=== PATIENT | male | born 1970 | race Caucasian/White ===

== ENCOUNTER → 2019-04-07 15:40 | Outpatient (BNVA) | payer OTHER, SELFPAY | PROVIDERS: Family Provider Nurse Practitioner; PCP Nurse Practitioner; Referring Provider Nurse Practitioner; Visit Provider Otolaryngology | DX: J31.0 Chronic rhinitis (principal); J32.9 Chronic sinusitis, unspecified | CPT/HCPCS: 96372; 99214; J3301 ==

== ENCOUNTER 2019-04-19 15:42 | Outpatient (CLI) | payer OTHER, SELFPAY ==
--- NOTE | 2019-04-19 16:05 | CT_ITS ---
WS: [id number] CT scan of the sinuses without IV contrast. Additional two-dimensional coronal and sagittal reconstru ction was performed. 04/19/2019 Clinical Data: allergic rhinitis Comparison: None. DLP: 514.[address] scans at [facility] use at least one of these dose optimization techniques: automat ed exposure control; mA and/or kV adjustment per patient size (includes targeted exams where dose is matched to clinical indication); or iterative reconstruction. Findings: The sinus cavities are clear with no air-fluid levels or bone destruction. There is minimal mucosal p eriosteal thickening of the right side of the sphenoid sinus. The orbits are intact. The nasal bones are unremarkable. The intraorbital contents show no abnormalities. CT/CT sinus wo con* [id number] Impression: Minimal mucoperiosteal thickening of right side of sphenoid sinus.
== END 2019-04-19 15:43 | disposition home or self-care (01) ==
LOC: RADWPI 15:46
PROVIDERS: Family Provider Nurse Practitioner; PCP Nurse Practitioner; Visit Provider Otolaryngology
DX: J30.9 Allergic rhinitis, unspecified (principal)
CPT/HCPCS: 70486

== ENCOUNTER → 2019-04-27 15:47 | Outpatient (BNVA) | payer OTHER, SELFPAY | PROVIDERS: Family Provider Nurse Practitioner; PCP Nurse Practitioner; Visit Provider Otolaryngology | DX: J32.9 Chronic sinusitis, unspecified (principal); J31.0 Chronic rhinitis; J34.2 Deviated nasal septum; J34.3 Hypertrophy of nasal turbinates | CPT/HCPCS: 99213; 99214 ==

== ENCOUNTER 2019-05-26 08:23 | Day surgery (SDC) | payer OTHER, SELFPAY ==
[2019-05-25 12:29] VITALS: BMI 32.3
[2019-05-26 08:36] VITALS: BP 145/104; PULSE 74; RESP 18; TEMP 36.5; O2SAT 97
[2019-05-26] MEDS: sodium chloride 0.9% 1,000 ML 30 ML IV (08:46)
--- NOTE | 2019-05-26 08:46 | W.PM.OPSUD ---
Surgery/Procedure H&P Update DATE OF PROCEDURE: May 26, 2019 DATE H&P PERFORMED: 04/27/19 H&P UPDATE INFORMATION: I have reviewed H&P completed within last 30 days, I have examined patient prior to procedure and No changes to prior documentation PREOP DIAGNOSIS: deviated septum PLANNED PROCEDURE: Operation Date: 05/26/19 13:25 Proposed Procedures p Septoturbinoplasty 56264 [id number] J34.2 J34.3(Not Applicable) - Raymundo Chaudhry MD
--- NOTE | 2019-05-26 08:50 | ANES.PREANE2 ---
Pre-Anesthetic Assessment Pre-Anesthetic Assessment: Height/Weight: Height 1.68 m Weight 90.718 kg Temp Pulse Resp BP Pulse Ox 97.7 F 74 18 145/104 97 05/26/19 08:36 05/26/19 08:36 05/26/19 08:36 05/26/19 08:36 05/26/19 08:36 Preop Diagnosis: deviated septum Proposed Procedure: Operation Date: 05/26/19 13:25 Proposed Procedures p Septoturbinoplasty 48999 16588 J34.2 J34.3(Not Applicable) - Raymundo Chaudhry MD Last intake: Intake Last Liquid Date 05/26/19 Last Liquid Time 05:00 Last Solid Date 05/25/19 Last Solid Time 20:00 Exam: Pre-Anes Outpt Exam: alert, oriented x 3, clear to auscultation bilaterally and regular rate & rhythm Airway: Submandibular: WNL Cervical ROM: WNL MP: 2 Dentition: Caps CV/HEM: Comments: 2 Blocks/2FOS without angina/VERAS Neuropsych: Neuropsych: BHARDWAJ Anesthetic Plan: ASA status: 2 Meds/Allergies Current Medications: Current Medications Generic Name Dose Route Start Last Admin Trade Name Freq PRN Reason Stop Dose Admin Sodium Chloride 1,000 mls @ 30 ml s/hr 05/26/19 08:30 05/26/19 08:46 Sodium Chloride 0.9% IV 05/27/19 08:29 30 mls/hr .Q24H ISAMAR Administration PFSH Anesthesia PFSH: Social History Smoking and tobacco status: never smoked Alcohol intake: former Year of sobriety/quit date alcohol: 2 History of recent travel: No Data Anesthesia Cardiac Studies: No Data to Display
[2019-05-26] MEDS: oxymetazoline 0.05% Nasal Spray 15 mL 2 SPRAY NOSTRIL-B (09:26)
[2019-05-26] MEDS: neomycin-poly-bacitracin oint 28 gm 1 APPLIC TOPICAL (09:43)
[2019-05-26 09:52] VITALS: BP 136/88; PULSE 74; RESP 18; TEMP 36.6; O2SAT 94
--- NOTE | 2019-05-26 09:52 | PM.OP ---
Operative Report Date of procedure: May 26, 2019 Pre-op Diagnosis: deviated septum, turbinate hypertrophy Post-op diagnosis: same Post-op Diagnosis: Perforation septum Post-op Findings: Severely deviated septum, hypertrophic turbinates, septal perforation Procedure Done: Nasal septal reconstruction, turbinate reduction. repair septal perforation Pathology: none sent Surgeon: Raymundo Chaudhry Anesthesia: General Condition: stable Disposition: PACU Brief History: 48-year-old male with inability to breathe Procedure: Patient was taken to the operating room and under satisfactory general endotracheal anesthesia the nose was prepped draped and injected. Both right and left nasal turbinates were outfractured and reduced with combination of blunt and piecemeal dissection. Significant improvement was noted. A right hemitransfixion incision anterior left right posterior left posterior and bilateral inferior tunnels were created. A septal perforation was encountered. The quadrangular cartilage was incised anterior to the perpendicular plate of the ethmoid and vomer. The septal deformity was resected. Septal perforation was closed by rotating the septal flap in place. 4-0 chromic was used to close the incisions. Bilateral Casey splints were placed. Patient tolerated the procedure well and was allowed to awaken continue recovery room where he was observed. During the observation time. Care instructions and counseling were given to the patient and his family. Once they verbalized an understanding of all instructions and once he met discharge criteria he was discharged in stable condition.
[2019-05-26 09:55] VITALS: BP 157/88; PULSE 68; RESP 17; O2SAT 95
[2019-05-26 10:00] VITALS: BP 121/95; PULSE 66; PULSE 67; RESP 15; TEMP 37.4; O2SAT 96
[2019-05-26 10:08] VITALS: BP 107/78; PULSE 67; RESP 18; TEMP 37.4; O2SAT 96
[2019-05-26] MEDS: acetaminophen-codeine 300-30mg Tablet 1 TAB PO (10:26)
[2019-05-26] MEDS: ketorolac 30 mg/mL INJ IVP (10:43)
[2019-05-26 10:44] VITALS: BP 140/78; PULSE 67; RESP 18; TEMP 37.4; O2SAT 97
== END 2019-05-26 11:30 | disposition home or self-care (01) ==
PROVIDERS: Family Provider Nurse Practitioner; PCP Nurse Practitioner; Visit Provider Otolaryngology
PROC: (CPT 30520; principal; 2019-05-26 13:25)
DX: J34.2 Deviated nasal septum (principal); J34.3 Hypertrophy of nasal turbinates
CPT/HCPCS: 30520; 30630; 30930; 12345; J0330; J1100; J1885; J2001; J2405; J2704; J2710; J3010; J3490; J7030

== ENCOUNTER → 2019-06-03 08:42 | Outpatient (BNVA) | payer OTHER, SELFPAY | PROVIDERS: Family Provider Nurse Practitioner; PCP Nurse Practitioner; Visit Provider Otolaryngology | DX: Z48.89 Encounter for other specified surgical aftercare (principal) | CPT/HCPCS: 99024 ==

== ENCOUNTER → 2020-10-16 14:04 | Outpatient (BNVA) | payer OTHER, SELFPAY | PROVIDERS: Family Provider Nurse Practitioner; PCP Nurse Practitioner; Referring Provider Nurse Practitioner; Visit Provider Podiatrist Foot & Ankle Surgery | DX: M79.672 Pain in left foot (principal); M79.671 Pain in right foot | CPT/HCPCS: 73630 ==

== ENCOUNTER 2020-12-18 07:14 | Outpatient (CLI) | payer OTHER, SELFPAY ==
--- NOTE | 2020-12-18 07:16 | MR_ITS ---
WS: [id number] MRI LUMBAR SPINE NONCONTRAST HISTORY: LOW BACK PAIN COMPARISON: None available. TECHNIQUE: Sagittal and axial multisequence imaging is submitted. Mild straightening of the normal cervical lordosis. Mild disc desiccation and osteophytes throughout the thoracic spine. Mild LEFT curvature lower lumbar spine. Mild straightening of the normal lumbar lordosis. Disc spaces are well preserved. No fractures or marrow edema. S1 appears partially lumbarized. Conus terminates normally at L1-2 disc level. T10-11: On the sagittal image there is a focal disc protrusion centrally which does not contact the c ord. L1-L2: Normal. L2-L3: Normal. L3-L4: Mild bilateral facet joint arthritis. Ligamentum flavum hypertrophy is asymmetric and greatest on the LEFT. LEFT foraminal disc protrusion without contact on the nerve root. Mild LEFT foraminal n arrowing. L4-L5: Diffuse annular disc bulging with a shallow central disc protrusion. Mild bilateral facet join t arthritis. Mild bilateral ligamentum flavum and facet arthritis. There is very mild foraminal narro wing. L5-S1: Mild annular disc bulging and mild vertebral body osteophytic ridging. Mild ligamentum flavum hypertrophy and facet arthritis. Disc is contacting but not displacing the S1 nerve roots bilaterally , LEFT greater than RIGHT. Very mild LEFT foraminal narrowing. Paravertebral soft tissues are normal. MR/MR lumbar spine wo con* [id number] IMPRESSION: 1. No high-grade central or foraminal stenosis. 2. Shallow LEFT foraminal disc protrusion at L3-4 without contact on the nerve roots and only mild foraminal narrowing. 3. Mild bilateral foraminal narrowing at L4-5. 4. Mild disc bulging and vertebral body osteophytes at L5-S1. Disc contacts bu t does not displace the S1 nerve roots bilaterally, LEFT greater than RIGHT. 5. Mild facet joint arthritis from L3-4 to L5-S1.
== END 2020-12-18 07:15 | disposition home or self-care (01) ==
LOC: RADSHAW 07:15
PROVIDERS: PCP Nurse Practitioner; Visit Provider Nurse Practitioner
DX: M51.26 Other intervertebral disc displacement, lumbar region (principal); M51.27 Other intervertebral disc displacement, lumbosacral region; M25.78 Osteophyte, vertebrae; M47.816 Spondylosis without myelopathy or radiculopathy, lumbar region; M47.817 Spondylosis without myelopathy or radiculopathy, lumbosacral region
CPT/HCPCS: 72148

== ENCOUNTER → 2021-01-31 15:48 | Outpatient (BNVA) | payer OTHER, SELFPAY | PROVIDERS: PCP Nurse Practitioner; Visit Provider Surgery | DX: Z20.822 Contact with and (suspected) exposure to COVID-19 (principal); Z11.52 Encounter for screening for COVID-19 | CPT/HCPCS: 87635 ==

== ENCOUNTER 2021-02-07 07:39 | Day surgery (SDC) | payer OTHER, SELFPAY ==
[2021-02-05 10:48] VITALS: BMI 36.3
--- NOTE | 2021-02-07 07:50 | ANES.PREANE2 ---
Pre-Anesthetic Assessment Pre-Anesthetic Assessment: Height/Weight: Height 1.68 m Weight 102.058 kg Preop Diagnosis: deviated septum, turbinate hypertrophy Proposed Procedure: Operation Date: 02/07/21 09:30 Proposed Procedures p Colonoscopy 49011 Z12.11(Not Applicable) - Baldo Campbell MD Was Beta Mike taken within 24 hours: N/A Was Clonidine taken within 24 hours: N/A Social: Social History: No alcohol and No tobacco Exam: Pre-Anes Outpt Exam: alert, oriented x 3, clear to auscultation bilaterally and regular rate & rhythm Airway: Submandibular: WNL Cervical ROM: WNL MP: 2 Dentition: Full Metabolic: Metabolic: DM, Hyperlipidemia and Morbid obesity Anesthetic Plan: ASA status: 3 Anesthesia: MAC Risk of > 500 ml blood loss (7ml/kg in children): No PFSH Anesthesia PFSH: Medical History Chronic sinusitis Deviated septum Nasal turbinate hypertrophy Family History Mother Cancer Grandmother Cancer Social History Smoking and tobacco status: never smoked Alcohol intake: former Year of sobriety/quit date alcohol: 2 History of recent travel: No Data Anesthesia Cardiac Studies: No Data to Display
[2021-02-07 08:07] VITALS: BP 135/100; PULSE 73; RESP 18; TEMP 36.5; O2SAT 94
[2021-02-07] MEDS: sodium chloride 0.9% 1,000 ML 30 ML IV (08:14)
--- NOTE | 2021-02-07 08:22 | P.HP_ITS ---
Same Day Surgery H&P Indication for Procedure/HPI DATE OF PROCEDURE: February 07, 2021 CHIEF COMPLAINT/INDICATIONFOR SURGICAL PROCEDURE: Change in bowel movement PREOP DIAGNOSIS: Change in bowel habits PLANNED PROCEDRUE: Operation Date: 02/07/21 09:30 Proposed Procedures p Colonoscopy 94119 Z12.11(Not Applicable) - Baldo Campbell MD 12/18/2020 This is a pleasant 50 years old gentleman presents with history of change in bowel movements in the form of constipation alternating with diarrhea has been getting worse. Patient never had a colonoscopy before and denies bleeding per rectum or history of colon cancer. Referred to my practice for consideration for colonoscopy. Patient also reports that he has hernia but he would like to have it fixed later on Interim history 02/07/2021 Patient comes today for diagnostic colonoscopy ROS All systems have been reviewed negative except as per the above or per problem list Medications/Allergies* Home Medications Medication Instructions Recorded Confirmed Type metformin 500 mg tablet 500 mg PO DAILY 01/08/21 02/07/21 History rosuvastatin 10 mg tablet 10 mg PO DAILY 01/08/21 02/07/21 History Allergies/Adverse Reactions 3 Allergy/AdvReac Type Severity Reaction Status Date / Time simvastatin Allergy rash Verified 02/07/21 08:24 Current Medications: Generic Name Dose Route Start Last Admin Trade Name Freq PRN Reason Stop Dose Admin Sodium Chloride 1,000 mls @ 30 mls/hr 02/07/21 08:15 02/07/21 08:14 Sodium Chloride 0.9% IV 30 mls/hr .Q24H ISAMAR Administration Pertinent History/Comorbid Conditions* Medical History (Updated 12/28/20 @ 16:06 by Vitaliy Calvert MD) Chronic sinusitis Deviated septum Nasal turbinate hypertrophy Family History (Updated 04/07/19 @ 16:29 by Danita Cote LPN) Cancer Mother Grandmother Social History Smoking and tobacco status: never smoked Alcohol intake: former Year of sobriety/quit date alcohol: 2 History of recent travel: No Pertinent Exam Findings alert, oriented x 3, regular rate & rhythm and procedure specific exam findings (Abdominal examination nontender nondistended soft) Recommendations Surgery/Procedure today (Colonoscopy with possible biopsy and possible polypectomy) Coding Level of Care Code Acute Manufacturing Maintenance Mechanic for Nani Li
[2021-02-07 09:07] VITALS: BP 135/85; PULSE 106; RESP 16; TEMP 36.2; O2SAT 94
[2021-02-07 09:17] VITALS: BP 114/85; PULSE 84; RESP 18; O2SAT 94
--- NOTE | 2021-02-07 14:57 | ANE.PACU2 ---
Inpatient post-anesthesia follow up: Airway intact: Yes Vital signs: Temperature 97.2 F Pulse Rate 84 Respiratory Rate 18 Blood Pressure 114/85 Pulse Oximetry 94 Oxygen Delivery Me thod Room Air Oxygen Flow Rate Fraction of Inspir ed Oxygen Hydration adequate: Yes Nausea and vomiting: No Pain level: 1 Mental status: Baseline
== END 2021-02-07 09:42 | disposition home or self-care (01) ==
PROVIDERS: PCP Nurse Practitioner; Visit Provider Surgery
PROC: 0DJD8ZZ Inspection of Lower Intestinal Tract, Via Natural or Artificial Opening Endoscopic (ICD-10-PCS; CPT 45378; principal; 2021-02-07 09:30)
DX: R19.4 Change in bowel habit (principal); E11.9 Type 2 diabetes mellitus without complications; E78.5 Hyperlipidemia, unspecified; E66.01 Morbid (severe) obesity due to excess calories; Z68.36 Body mass index [BMI] 36.0-36.9, adult
CPT/HCPCS: 45378; 96360; J2704; J7030

== ENCOUNTER → 2021-09-05 07:57 | Outpatient (BNVA) | payer OTHER, SELFPAY | PROVIDERS: PCP Nurse Practitioner; Visit Provider Podiatrist Foot & Ankle Surgery | DX: S93.402A Sprain of unspecified ligament of left ankle, initial encounter (principal); V29.9XXA Motorcycle rider (driver) (passenger) injured in unspecified traffic accident, initial encounter; M76.72 Peroneal tendinitis, left leg | CPT/HCPCS: 99214 ==

== ENCOUNTER 2021-10-12 06:55 | Outpatient (CLI) | payer OTHER, SELFPAY ==
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
== END 2021-10-12 06:56 | disposition home or self-care (01) ==
LOC: RAD 06:57
PROVIDERS: PCP Nurse Practitioner; Visit Provider Podiatrist Foot & Ankle Surgery
DX: S99.912A Unspecified injury of left ankle, initial encounter (principal); X58.XXXA Exposure to other specified factors, initial encounter
CPT/HCPCS: 73721

== ENCOUNTER → 2021-10-31 10:27 | Outpatient (BNVA) | payer OTHER, SELFPAY | PROVIDERS: PCP Nurse Practitioner; Visit Provider Podiatrist Foot & Ankle Surgery | DX: S93.492A Sprain of other ligament of left ankle, initial encounter (principal); W23.0XXA Caught, crushed, jammed, or pinched between moving objects, initial encounter; M85.672 Other cyst of bone, left ankle and foot | CPT/HCPCS: 99214 ==

== ENCOUNTER 2021-11-16 06:06 | Day surgery (SDC) | payer OTHER, SELFPAY ==
[2021-11-15 12:29] VITALS: BMI 36.6
--- NOTE | 2021-11-16 | SCC_ITS ---
Procedure done: Needle core biopsy left tibia CPT code 43278 7 seconds of fluoroscopic guidance, for a cumulative dose of 0.242 mGy, was provided to Dr. Nelson by the radiology department. C-arm images of the left ankle were saved for the patient's permanent record. [facility]
--- NOTE | 2021-11-16 | XR_ITS ---
WS: [id number] LEFT ANKLE: 1 VIEW(S) TECHNIQUE: AP view. HISTORY: Needle core biopsy left tibia COMPARISON: 07/19/2021. Single AP radiograph submitted. Intraoperative biopsy needle noted overlying the lesion in the distal lateral tibia. No fractures. XR/XR ankle LT 1V [id number] IMPRESSION: Imaging during core bone biopsy distal tibial lesion.
[2021-11-16 06:21] VITALS: BP 143/100; PULSE 64; RESP 16; TEMP 36.1; O2SAT 95
[2021-11-16] MEDS: CELEcoxib 200 mg Capsule 400 MG PO (06:33)
[2021-11-16] MEDS: gabapentin 300 mg Capsule PO (06:33)
[2021-11-16 06:38] LABS: Glucose Point of Care 146 mg/dL (70-110)
--- NOTE | 2021-11-16 06:56 | W.PM.OPSUD ---
Surgery/Procedure H&P Update DATE OF PROCEDURE: November 16, 2021 DATE H&P PERFORMED: 10/31/21 CHANGES TO PREVIOUS DOCUMENTATION: None PREOP DIAGNOSIS: Bone tumor left tibia PLANNED PROCEDURE: Operation Date: 11/16/21 07:50 Proposed Procedures p Bone biopsy left tibia. CPT code: 16929,733.20(Left) - Demond Nelson DPM
--- NOTE | 2021-11-16 07:06 | P.ANESASSM_ITS ---
Pre-Anesthetic Assessment Height/Weight: Height 1.65 m Weight 99.79 kg Temp Pulse Resp BP Pulse Ox O2 Del Method 97.0 F L 64 16 143/100 95 11/16/21 06:21 11/16/21 06:21 11/16/21 06:21 11/16/21 06:21 11/16/21 06:21 11/16/21 06:22 Preop Diagnosis: Bone tumor left tibia Operation Date: 11/16/21 07:50 Proposed Procedures p Bone biopsy left tibia. CPT code: 74311,733.20(Left) - Demond Nelson DPM Familial anesthetic complications: none Was Beta Mike taken within 24 hours: N/A Was Clonidine taken within 24 hours: N/A Last intake: Intake Last Liquid Date 11/15/21 Last Liquid Time 21:00 Last Solid Date 11/15/21 Last Solid Time 21:00 Social No alcohol and No tobacco Exam alert, oriented x 3, clear to auscultation bilaterally and regular rate & rhythm Airway Submandibular: within normal limits Cervical ROM: within normal limits Mallampati: Class III Metabolic Diabetes Mellitus and Morbid Obesity [facility] Osteoarthritis/DJD Anesthetic Plan ASA status: 2 Anesthesia: Choice Medications/Allergies Home Medications Medication Instructions Recorded Confirmed Last Taken Type Custom Molded Functal Orthotics #1 ea 10/16/20 10/31/21 Unknown Rx for Left and Right Foot metformin 500 mg tablet 500 mg PO DAILY 01/08/21 11/15/21 11/15/21 History meloxicam 15 mg tablet 15 mg PO ONCE PRN Pain, Moderate 04/16/21 11/15/21 10/17/21 History Allergies Allergy/AdvReac Type Severity Reaction Status Date / Time simvastatin Allergy rash Verified 10/31/21 10:34 [facility] Anesthesia Medical History Chronic sinusitis Deviated septum Nasal turbinate hypertrophy Family History Mother Cancer Grandmother Cancer Social History Smoking and tobacco status: former smoker Alcohol intake: former Year of sobriety/quit date alcohol: 2 History of recent travel: No Data Anesthesia Cardiac Studies: No Data to Display
[2021-11-16] MEDS: ceFAZolin 2,000 MG in sodium chloride 0.9% (plus) 50 ML 100 MG IV (07:56)
[2021-11-16] MEDS: sodium chloride 0.9% 1,000 ML 30 ML IV (08:09)
[2021-11-16 08:16] VITALS: BP 123/68; PULSE 86; RESP 16; TEMP 36.7; O2SAT 94
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
[2021-11-16 08:21] VITALS: BP 112/66; PULSE 84; RESP 16; O2SAT 92
[2021-11-16 08:25] VITALS: BP 104/68; PULSE 69; RESP 16; TEMP 36.6; O2SAT 92
[2021-11-16 08:36] VITALS: BP 106/66; PULSE 71; RESP 18; TEMP 36.6; O2SAT 97
[2021-11-16 09:00] VITALS: BP 114/71; PULSE 62; RESP 16; TEMP 36.6; O2SAT 97
--- NOTE | 2021-11-16 14:52 | ANE.PACU2 ---
Inpatient post-anesthesia follow up: Airway intact: Yes Vital signs: Temperature 97.8 F Pulse Rate 62 Respiratory Rate 16 Blood Pressure 114/71 Pulse Oximetry 97 Oxygen Delivery Me thod Room Air Oxygen Flow Rate Fraction of Inspir ed Oxygen Hydration adequate: Yes Nausea and vomiting: No Pain level: 1 Mental status: Baseline
== END 2021-11-16 09:15 | disposition home or self-care (01) ==
PROVIDERS: PCP Nurse Practitioner; Visit Provider Podiatrist Foot & Ankle Surgery
PROC: (CPT 20225; principal; 2021-11-16 07:40)
DX: M89.9 Disorder of bone, unspecified (principal); E11.9 Type 2 diabetes mellitus without complications; E66.01 Morbid (severe) obesity due to excess calories; Z68.36 Body mass index [BMI] 36.0-36.9, adult; Z87.891 Personal history of nicotine dependence
CPT/HCPCS: 20225; 36416; 73600; 76000; 82962; 88307; 88311; J2405; J2704; J3490; J7030

== ENCOUNTER → 2021-11-29 08:42 | Outpatient (BNVA) | payer OTHER, SELFPAY | PROVIDERS: PCP Nurse Practitioner; Visit Provider Podiatrist Foot & Ankle Surgery | DX: S93.492A Sprain of other ligament of left ankle, initial encounter (principal); M85.672 Other cyst of bone, left ankle and foot; W23.1XXA Caught, crushed, jammed, or pinched between stationary objects, initial encounter | CPT/HCPCS: 99213 ==

== ENCOUNTER 2021-11-30 06:50 | Outpatient (RCR) | payer OTHER, SELFPAY | END 2021-12-07 23:59 | disposition home or self-care (01) | LOC: SPT 06:50 | PROVIDERS: PCP Nurse Practitioner; Visit Provider Podiatrist Foot & Ankle Surgery | DX: M25.572 Pain in left ankle and joints of left foot (principal); M62.81 Muscle weakness (generalized) | CPT/HCPCS: 97110; 97161 ==

== ENCOUNTER 2021-12-08 06:00 | Outpatient (RCR) | payer OTHER, SELFPAY | END 2022-01-07 23:59 | disposition home or self-care (01) | LOC: SPT 06:00 | PROVIDERS: PCP Nurse Practitioner; Visit Provider Podiatrist Foot & Ankle Surgery | DX: S93.402D Sprain of unspecified ligament of left ankle, subsequent encounter (principal); X58.XXXD Exposure to other specified factors, subsequent encounter | CPT/HCPCS: 97110 ==

== ENCOUNTER 2022-01-08 06:00 | Outpatient (RCR) | payer OTHER, SELFPAY | END 2022-02-06 23:59 | disposition home or self-care (01) | LOC: SPT 06:00 | PROVIDERS: PCP Nurse Practitioner; Visit Provider Podiatrist Foot & Ankle Surgery | DX: M25.572 Pain in left ankle and joints of left foot (principal); M62.81 Muscle weakness (generalized) | CPT/HCPCS: 97110 ==

== ENCOUNTER → 2022-01-11 13:40 | Outpatient (BNVA) | payer OTHER, SELFPAY | PROVIDERS: PCP Nurse Practitioner; Visit Provider Podiatrist Foot & Ankle Surgery | DX: S93.492D Sprain of other ligament of left ankle, subsequent encounter (principal); W23.1XXD Caught, crushed, jammed, or pinched between stationary objects, subsequent encounter | CPT/HCPCS: 99213 ==

== ENCOUNTER 2022-02-07 06:00 | Outpatient (RCR) | payer OTHER, SELFPAY | END 2022-03-09 23:59 | disposition home or self-care (01) | LOC: SPT 06:00 | PROVIDERS: PCP Nurse Practitioner; Visit Provider Podiatrist Foot & Ankle Surgery | DX: M25.572 Pain in left ankle and joints of left foot (principal); M62.81 Muscle weakness (generalized) | CPT/HCPCS: 97110 ==

== ENCOUNTER → 2022-03-06 07:51 | Outpatient (BNVA) | payer OTHER, SELFPAY | PROVIDERS: PCP Nurse Practitioner; Visit Provider Podiatrist Foot & Ankle Surgery | DX: X58.XXXA Exposure to other specified factors, initial encounter (principal); S93.492A Sprain of other ligament of left ankle, initial encounter | CPT/HCPCS: 99213 ==

== ENCOUNTER → 2022-05-08 08:01 | Outpatient (BNVA) | payer OTHER, SELFPAY | PROVIDERS: PCP Nurse Practitioner; Visit Provider Podiatrist Foot & Ankle Surgery | DX: S93.492A Sprain of other ligament of left ankle, initial encounter (principal); M76.72 Peroneal tendinitis, left leg; X58.XXXA Exposure to other specified factors, initial encounter | CPT/HCPCS: 20550 ==

== ENCOUNTER → 2022-07-08 08:10 | Outpatient (BNVA) | payer OTHER, SELFPAY | PROVIDERS: PCP Nurse Practitioner; Visit Provider Podiatrist Foot & Ankle Surgery | DX: S93.492D Sprain of other ligament of left ankle, subsequent encounter (principal); X58.XXXD Exposure to other specified factors, subsequent encounter; M76.72 Peroneal tendinitis, left leg | CPT/HCPCS: 99213 ==

== ENCOUNTER → 2022-08-28 07:48 | Outpatient (BNVA) | payer OTHER, SELFPAY | PROVIDERS: PCP Nurse Practitioner; Visit Provider Podiatrist Foot & Ankle Surgery | DX: M72.2 Plantar fascial fibromatosis (principal) | CPT/HCPCS: 73630; 99213 ==

== ENCOUNTER → 2022-09-25 07:54 | Outpatient (BNVA) | payer OTHER, SELFPAY | PROVIDERS: PCP Nurse Practitioner; Visit Provider Podiatrist Foot & Ankle Surgery | DX: M72.2 Plantar fascial fibromatosis (principal) | CPT/HCPCS: 20550; J1100; J3301; J3490 ==

== ENCOUNTER → 2023-02-24 08:26 | Outpatient (BNVA) | payer OTHER, SELFPAY | PROVIDERS: PCP Nurse Practitioner; Visit Provider Podiatrist Foot & Ankle Surgery | DX: M72.2 Plantar fascial fibromatosis (principal); M21.42 Flat foot [pes planus] (acquired), left foot | CPT/HCPCS: 99213 ==

== ENCOUNTER 2023-04-04 09:12 | Outpatient (CLI) | payer OTHER, SELFPAY ==
--- NOTE | 2023-04-04 09:17 | MR_ITS ---
WS: [id number] MRI LUMBAR SPINE NONCONTRAST HISTORY: LOW BACK PAIN COMPARISON: None available. TECHNIQUE: Sagittal and axial multisequence imaging is submitted. Slight straightening of the normal cervical lordosis. Normal lumbar alignment. The S1 vertebral body is partially lumbarized. No fractures or marrow edema. Very mild disc space narrowing and desiccation at L5-S1. Conus terminates normally at L1-2 disc level. Previously described disc protrusion at T10-11 is reidentified without progression. L1-L2: Normal. L2-L3: Mild ligamentum flavum and facet disease. No significant stenosis. L3-L4: Mild annular disc bulging with ligamentum flavum and facet disease. Shallow LEFT foraminal dis c protrusion is reidentified. Mild progression of central and subarticular recess stenosis. There is mild encroachment upon the traversing L4 nerve roots but no high-grade stenosis. L4-L5: Mild annular disc bulging with a shallow central disc protrusion, bilateral facet and ligament um flavum arthritis. Mild progression of central and bilateral subarticular recess stenosis. Minimal foraminal narrowing. L5-S1: Mild annular disc bulging with a shallow central disc protrusion contacting the S1 nerve roots . Mild osteophytic ridging, bilateral moderate facet arthritis. Mild central and subarticular recess stenosis. There is very slight disc contact on the undersurface of the exiting RIGHT L5 nerve root. IMPRESSION: 1. Mild progression of degenerative facet disease and stenoses from L3-4 through L5-S1 since 021. 2. No high-grade stenosis. 3. L3-4: Mild central and bilateral subarticular recess stenosis. There is mild disc encroachment up on the traversing L4 nerve roots. 4. L4-5: Mild progression of central, bilateral subarticular recess and foraminal stenosis. Shallow central disc protrusion. 5. L5-S1: Shallow central disc protrusion contacting the S1 nerve roots. Moderate bilateral facet ar thritis. Mild central and subarticular recess stenosis. 6. Mild disc contact on the undersurface of the exiting RIGHT L5 nerve root.
== END 2023-04-04 09:13 | disposition home or self-care (01) ==
LOC: RAD 09:12
PROVIDERS: PCP Nurse Practitioner; Visit Provider Nurse Practitioner
DX: M47.817 Spondylosis without myelopathy or radiculopathy, lumbosacral region (principal); M48.07 Spinal stenosis, lumbosacral region; M51.27 Other intervertebral disc displacement, lumbosacral region
CPT/HCPCS: 72148

== ENCOUNTER → 2023-04-15 15:39 | Outpatient (BNVA) | payer OTHER, SELFPAY | PROVIDERS: PCP Nurse Practitioner; Visit Provider Podiatrist Foot & Ankle Surgery | DX: M21.42 Flat foot [pes planus] (acquired), left foot (principal); M25.572 Pain in left ankle and joints of left foot; M72.2 Plantar fascial fibromatosis | CPT/HCPCS: 20550; 20600; J1100; J3301 ==

== ENCOUNTER → 2023-05-15 10:46 | Outpatient (BNVA) | payer OTHER, SELFPAY | PROVIDERS: PCP Nurse Practitioner; Visit Provider Podiatrist Foot & Ankle Surgery | DX: M72.2 Plantar fascial fibromatosis (principal); M21.42 Flat foot [pes planus] (acquired), left foot; M25.572 Pain in left ankle and joints of left foot | CPT/HCPCS: 20550; 73630; J1100; J3301; J3490 ==

== ENCOUNTER → 2023-06-17 15:29 | Outpatient (BNVA) | payer OTHER, SELFPAY | PROVIDERS: PCP Nurse Practitioner; Visit Provider Podiatrist Foot & Ankle Surgery | DX: M21.42 Flat foot [pes planus] (acquired), left foot (principal); M72.2 Plantar fascial fibromatosis | CPT/HCPCS: 99213 ==

== ENCOUNTER → 2023-12-15 07:00 | Outpatient (BNVA) | payer OTHER, SELFPAY | PROVIDERS: PCP Nurse Practitioner; Visit Provider Podiatrist Foot & Ankle Surgery | DX: M76.72 Peroneal tendinitis, left leg (principal); M25.572 Pain in left ankle and joints of left foot; M21.42 Flat foot [pes planus] (acquired), left foot; M79.672 Pain in left foot; M72.2 Plantar fascial fibromatosis | CPT/HCPCS: 99213 ==

== ENCOUNTER 2024-01-09 11:34 | Outpatient (CLI) | payer OTHER, SELFPAY ==
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
== END 2024-01-09 11:35 | disposition home or self-care (01) ==
LOC: RAD 11:34
PROVIDERS: PCP Nurse Practitioner; Visit Provider Podiatrist Foot & Ankle Surgery
DX: M76.72 Peroneal tendinitis, left leg (principal); M25.572 Pain in left ankle and joints of left foot; M21.42 Flat foot [pes planus] (acquired), left foot
CPT/HCPCS: 73721

== ENCOUNTER → 2024-01-26 06:57 | Outpatient (BNVA) | payer OTHER, SELFPAY | PROVIDERS: PCP Nurse Practitioner; Visit Provider Podiatrist Foot & Ankle Surgery | DX: M21.42 Flat foot [pes planus] (acquired), left foot (principal); M72.2 Plantar fascial fibromatosis; M76.72 Peroneal tendinitis, left leg; M62.9 Disorder of muscle, unspecified; M24.572 Contracture, left ankle | CPT/HCPCS: 99213 ==

== ENCOUNTER 2024-03-19 13:14 | Outpatient (CLI) | payer OTHER, SELFPAY ==
--- NOTE | 2024-03-19 13:20 | MR_ITS ---
WS: [id number] MRI LUMBAR SPINE NONCONTRAST HISTORY: LS NARROWING ON IMAGING/LBP COMPARISON: 04/04/2023 TECHNIQUE: Sagittal and axial multisequence imaging is submitted. Mild straightening of the normal lumbar lordosis. S1 is partially lumbarized. No fractures or marrow edema. Mild disc desiccation at L4-5 and L5-S1. Disc spaces and vertebral body heights are well-preserved. Conus terminates normally at L1-2 disc level. L1-L2: Normal. L2-L3: Normal. L3-L4: Mild annular disc bulging with a shallow LEFT foraminal disc protrusion. Mild disc encroachmen t upon the traversing L4 nerve roots. L4-L5: Diffuse annular disc bulging with a central disc protrusion. Mild osteophytosis. Central disc protrusion has increased in size. Mild central and bilateral subarticular recess and foraminal stenos is. Most significant encroachment is upon the traversing L5 nerve roots. L5-S1: Osteophytic ridging with annular disc bulging. LEFT paracentral disc osteophyte. Slightly grea ter encroachment upon the LEFT S1 nerve root. Mild foraminal narrowing. Paravertebral soft tissues are normal. MR/MR lumbar spine wo con* [id number] IMPRESSION: 1. Degenerative disc disease and facet arthritis. 2. No high-grade central stenosis. 3. L4-5: Mild central, bilateral subarticular recess and foraminal stenosis. D isc encroachment and contacts the traversing L5 nerve roots. 4. Small central disc protrusion at L4-5. 5. L3-4: Shallow LEFT foraminal disc protrusion. Mild encroachment upon the tr aversing L4 nerve roots by disc disease. No progression. 6. L5-S1: Annular disc bulging with a LEFT paracentral disc osteophyte. Encroa chment upon the S1 nerve roots, LEFT greater than RIGHT.
== END 2024-03-19 13:15 | disposition home or self-care (01) ==
LOC: RAD 13:15
PROVIDERS: PCP Nurse Practitioner; Visit Provider Nurse Practitioner Family
DX: M51.360 Other intervertebral disc degeneration, lumbar region with discogenic back pain only (principal); M47.896 Other spondylosis, lumbar region; M51.26 Other intervertebral disc displacement, lumbar region; M25.78 Osteophyte, vertebrae; M51.27 Other intervertebral disc displacement, lumbosacral region
CPT/HCPCS: 72148

== ENCOUNTER → 2024-07-16 09:36 | Outpatient (BNVA) | payer OTHER, SELFPAY | PROVIDERS: PCP Nurse Practitioner; Referring Provider Nurse Practitioner; Visit Provider Nurse Practitioner Family | DX: M54.50 Low back pain, unspecified (principal); M79.604 Pain in right leg; M79.605 Pain in left leg; M54.16 Radiculopathy, lumbar region; G89.29 Other chronic pain; M25.551 Pain in right hip; M47.816 Spondylosis without myelopathy or radiculopathy, lumbar region | CPT/HCPCS: 99214 ==

== ENCOUNTER 2024-07-23 10:19 | Outpatient (CLI) | payer OTHER, SELFPAY ==
--- NOTE | 2024-07-23 10:23 | XR_ITS ---
WS: [id number] Exam: XR hip RT 2-3V wo/w pel* [id number] Date/Time of Exam: 07/23/2024 10:23 AM Reason For Exam: M25.551 - Pain in right hip No fracture. Mild degenerative narrowing of the joint compartment. Normal soft tissues. XR/XR hip RT 2-3V wo/w pel* [id number] IMPRESSION: 1. Degenerative narrowing of the joint space. No fracture or other significant finding.
== END 2024-07-23 10:20 | disposition home or self-care (01) ==
LOC: RAD 10:20
PROVIDERS: PCP Nurse Practitioner; Visit Provider Nurse Practitioner Family
DX: M16.11 Unilateral primary osteoarthritis, right hip (principal); G89.29 Other chronic pain
CPT/HCPCS: 73502

== ENCOUNTER → 2024-07-29 13:43 | Outpatient (BNVA) | payer OTHER, SELFPAY | PROVIDERS: PCP Nurse Practitioner; Visit Provider Nurse Practitioner Family | DX: M54.16 Radiculopathy, lumbar region (principal); G89.29 Other chronic pain; M25.551 Pain in right hip; M47.816 Spondylosis without myelopathy or radiculopathy, lumbar region | CPT/HCPCS: 20553; 99214; J1010; J3490 ==

== ENCOUNTER 2024-08-08 05:00 | Outpatient (RCR) | payer OTHER, SELFPAY | END 2024-09-06 23:59 | disposition home or self-care (01) | LOC: SPT 05:00 | PROVIDERS: PCP Nurse Practitioner; Visit Provider Nurse Practitioner Family | DX: M54.50 Low back pain, unspecified (principal); M79.605 Pain in left leg; M79.604 Pain in right leg | CPT/HCPCS: 97110; 97161 ==

== ENCOUNTER → 2024-08-20 10:43 | Outpatient (BNVA) | payer OTHER, SELFPAY | PROVIDERS: PCP Nurse Practitioner; Visit Provider Nurse Practitioner Family | DX: M54.16 Radiculopathy, lumbar region (principal); G89.29 Other chronic pain; M25.551 Pain in right hip; M47.816 Spondylosis without myelopathy or radiculopathy, lumbar region | CPT/HCPCS: 99214 ==

== ENCOUNTER 2024-09-07 05:00 | Outpatient (RCR) | payer OTHER, SELFPAY | END 2024-10-07 23:59 | disposition home or self-care (01) | LOC: SPT 05:00 | PROVIDERS: PCP Nurse Practitioner; Visit Provider Nurse Practitioner Family | DX: M54.50 Low back pain, unspecified (principal); M79.604 Pain in right leg; M79.605 Pain in left leg | CPT/HCPCS: 97110 ==

== ENCOUNTER 2024-10-08 05:00 | Outpatient (RCR) | payer OTHER, SELFPAY | END 2024-11-07 23:59 | disposition home or self-care (01) | LOC: SPT 05:00 | PROVIDERS: PCP Nurse Practitioner; Visit Provider Nurse Practitioner Family | DX: M54.50 Low back pain, unspecified (principal); M79.604 Pain in right leg; M79.605 Pain in left leg | CPT/HCPCS: 97110 ==

== ENCOUNTER → 2024-10-25 11:22 | Outpatient (BNVA) | payer OTHER, SELFPAY | PROVIDERS: PCP Nurse Practitioner; Visit Provider Nurse Practitioner Family | DX: M47.816 Spondylosis without myelopathy or radiculopathy, lumbar region (principal); M54.16 Radiculopathy, lumbar region; G89.29 Other chronic pain; M25.551 Pain in right hip | CPT/HCPCS: 99214 ==

== ENCOUNTER → 2024-11-05 12:56 | Outpatient (BNVA) | payer OTHER, SELFPAY | PROVIDERS: PCP Nurse Practitioner; Visit Provider Nurse Practitioner Family | DX: L30.8 Other specified dermatitis (principal); L85.3 Xerosis cutis; D48.5 Neoplasm of uncertain behavior of skin; L57.0 Actinic keratosis | CPT/HCPCS: 11102; 17000; 99214 ==

== ENCOUNTER 2024-11-08 05:00 | Outpatient (RCR) | payer OTHER, SELFPAY | END 2024-12-06 07:52 | disposition home or self-care (01) | LOC: SPT 05:00 | PROVIDERS: PCP Nurse Practitioner; Visit Provider Nurse Practitioner Family | DX: M54.50 Low back pain, unspecified (principal); M79.604 Pain in right leg; M79.605 Pain in left leg | CPT/HCPCS: 97110 ==

== ENCOUNTER 2024-12-01 16:46 | Outpatient (CLI) | payer OTHER, SELFPAY | END 2024-12-01 16:47 | disposition home or self-care (01) | LOC: SLEEP 16:47 | PROVIDERS: PCP Nurse Practitioner; Referring Provider Nurse Practitioner; Visit Provider Internal Medicine Pulmonary Disease | DX: G47.33 Obstructive sleep apnea (adult) (pediatric) (principal); R09.02 Hypoxemia | CPT/HCPCS: G0399 ==

== ENCOUNTER → 2024-12-13 08:47 | Outpatient (BNVA) | payer OTHER, SELFPAY | PROVIDERS: PCP Nurse Practitioner; Visit Provider Nurse Practitioner Family | DX: M54.16 Radiculopathy, lumbar region (principal); G89.29 Other chronic pain; M25.551 Pain in right hip; M47.816 Spondylosis without myelopathy or radiculopathy, lumbar region | CPT/HCPCS: 73630; 99214 ==

== ENCOUNTER → 2024-12-29 12:35 | Outpatient (BNVA) | payer OTHER, SELFPAY | PROVIDERS: PCP Nurse Practitioner; Visit Provider Anesthesiology Pain Medicine | DX: M54.16 Radiculopathy, lumbar region (principal) | CPT/HCPCS: 64483; 64484; J1100; J3490; J9999 ==

== ENCOUNTER → 2025-01-12 09:12 | Outpatient (BNVA) | payer OTHER, SELFPAY | PROVIDERS: PCP Nurse Practitioner; Visit Provider Nurse Practitioner Family | DX: M47.816 Spondylosis without myelopathy or radiculopathy, lumbar region (principal); M54.16 Radiculopathy, lumbar region; G89.29 Other chronic pain; M25.551 Pain in right hip | CPT/HCPCS: 99214 ==

== ENCOUNTER → 2025-01-25 14:44 | Outpatient (BNVA) | payer OTHER, SELFPAY | PROVIDERS: PCP Nurse Practitioner; Visit Provider Anesthesiology Pain Medicine | DX: M47.816 Spondylosis without myelopathy or radiculopathy, lumbar region (principal) | CPT/HCPCS: 64493; 64494; 64495; J3490; J9999 ==

== ENCOUNTER → 2025-02-01 10:12 | Outpatient (BNVA) | payer OTHER, SELFPAY | PROVIDERS: PCP Nurse Practitioner; Visit Provider Nurse Practitioner Family | DX: M54.16 Radiculopathy, lumbar region (principal); M47.816 Spondylosis without myelopathy or radiculopathy, lumbar region; G89.29 Other chronic pain; M25.551 Pain in right hip | CPT/HCPCS: 99214 ==

== ENCOUNTER → 2025-02-09 14:48 | Outpatient (BNVA) | payer OTHER, SELFPAY | PROVIDERS: PCP Nurse Practitioner; Visit Provider Anesthesiology Pain Medicine | DX: M47.816 Spondylosis without myelopathy or radiculopathy, lumbar region (principal) | CPT/HCPCS: 64493; 64494; 64495; J3490; J9999 ==

== ENCOUNTER → 2025-02-23 08:46 | Outpatient (BNVA) | payer OTHER, SELFPAY | PROVIDERS: PCP Nurse Practitioner; Visit Provider Nurse Practitioner Family | DX: M54.16 Radiculopathy, lumbar region (principal); M47.816 Spondylosis without myelopathy or radiculopathy, lumbar region; G89.29 Other chronic pain; M25.551 Pain in right hip | CPT/HCPCS: 99214 ==

== ENCOUNTER → 2025-02-27 12:18 | Outpatient (BNVA) | payer OTHER, SELFPAY | PROVIDERS: PCP Nurse Practitioner | DX: R52 Pain, unspecified (principal); J02.9 Acute pharyngitis, unspecified | CPT/HCPCS: 87400; 87426; 87880 ==